=== PATIENT | male | born 1985 | race Caucasian/White ===

== ENCOUNTER → 2021-08-06 | Outpatient (CLI) | payer OTHER ==
--- NOTE | 2021-08-06 19:02 | RAD ---
Small bowel follow-through study 08/06/2021 CLINICAL HISTORY: Left lower quadrant abdominal pain. Bloating. TECHNIQUE: A small bowel follow-through study was performed under radiographic control. 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 These radio graphs demonstrate a nonobstructive bowel gas pattern. A moderate amount of stool is seen throughout the colon. No radiopaque calculus is seen. The osseous structures are grossly intact. The mucosal pattern of the duodenum, jejunum, ileum and terminal ileum is within normal limits. The s mall bowel transit time is prolonged. The oral contrast is seen entering the colon at 345 minutes aft er the patient ingested the oral contrast material. No dilatation of small bowel is seen. The cecum i s in its normal location within the right lower quadrant of the abdomen. No extrinsic mass effect upo n the small bowel is seen. IMPRESSION: Prolonged small bowel transit. Otherwise negative study. Electronically signed by: Juan Manuel Garza MD (08/06/2021 7:00 PM) [id number]
== END ==
LOC: RAD 08:08
PROVIDERS: ATTEND Internal Medicine Gastroenterology
DX: R10.9 Unspecified abdominal pain (principal)
CPT/HCPCS: 74250